=== PATIENT | female | born 1985 | race Hispanic/Latino ===

== ENCOUNTER 2017-07-28 23:57 | Outpatient (CLI) | payer MEDICAID ==
[2017-07-29 01:35] VITALS: BP 120/56
== END 2017-07-29 01:20 | disposition home or self-care (01) ==
LOC: TRG 23:57 → LD 07-29 00:03 → TRG 07-29 01:20
PROVIDERS: ATTEND Obstetrics & Gynecology
DX: O47.1 False labor at or after 37 completed weeks of gestation (principal); Z3A.38 38 weeks gestation of pregnancy

== ENCOUNTER 2019-06-13 14:52 | Inpatient (IN) | payer MEDICAID ==
--- NOTE | 2019-06-13 18:00 | Ultrasound Report ---
ULTRASOUND OBSTETRIC LIMITED ULTRASOUND BIOPHYSICAL PROFILE INDICATION / CLINICAL INFORMATION: well being post dates. COMPARISON: None available. FINDINGS: BREATHING MOVEMENT = 2 GROSS BODY MOVEMENT = 2 TONE = 2 QUALITATIVE AMNIOTIC FLUID VOLUME = 2 TOTAL BIOPHYSICAL SCORE = 8/8 AMNIOTIC FLUID INDEX (cm) = 16 PRESENTATION: cephalic HEART RATE (beats per minute): 125 ADDITIONAL FINDINGS: None. IMPRESSION: 1. Biophysical Score = 8/8 Signer Name: Brandt Alatorre MD Signed: 06/13/2019 5:56 PM Workstation Name: [id number]
--- NOTE | 2019-06-13 18:07 | Ultrasound Report ---
ULTRASOUND LIMITED INDICATION: non reactive nst. COMPARISON: Biophysical profile same day FINDINGS: AMNIOTIC FLUID INDEX (cm) = 16.4 PRESENTATION: Cephalic. HEART RATE (beats per minute): 125 IMPRESSION: 1. Single living intrauterine fetus in cephalic presentation. Normal [place]YSON Signer Name: Brandt Alatorre MD Signed: 06/13/2019 6:03 PM Workstation Name: [email or web address]
[2019-06-13] MEDS ORDERED: LIDOCAINE (2%) 20 MG/1 ML VIAL 20 ML MDV INFILTRATI ONE (18:51)
[2019-06-13] MEDS ORDERED: AMPICILLIN/NS 2 GM/100 ML 2 GM/100 ML BAG IV ONE (18:51)
[2019-06-13] MEDS ORDERED: TERBUTALINE 1 MG/1 ML INJ SUB-Q PRN (18:51)
[2019-06-13] MEDS ORDERED: ePHEDrine SULFATE 50 MG/1 ML INJ IV PRN (18:51)
[2019-06-13] MEDS ORDERED: OXYTOCIN 20 UNIT/1000ML DRIP 20 UNITS/1,000 ML BAG IV SCH (19:00)
--- NOTE | 2019-06-13 19:02 | History and Physical Report ---
History of Present Illness Date of examination: 06/13/19 Date of admission: 06/13/19 Chief complaint: Contractions History of present illness: 34 year old sent from office at 40 3/7 weeks due to nonreactive NST. Patient reports active movement. She denies leaking of water or vaginal bleeding. She reports contractions. Patient received care from [facility] and records are available. LMP 09/03/18. EDC 06/10/19. significant for the following: AMA, anemia (supplemented with iron), elevated 1 hour sugar test (3 hour OGTT WNL), GBS positive, reactive hypoglycemia. labs are as follows: O+, antibody screen negative, rubella immune, hepatitis B surface antigen negative, HIV negative, RPR nonreactive, GC negative, CT negative, GBS positive, panorama low risk, horizon negative, 1 hour sugar test 140, 3 hour OGTT negative. Past History Past Medical History: no pertinent history Past Surgical History: other (eye surgery) [facility] History: chlamydia (history of chlamydia, treated and cured). denies: abnormal PAP smear, gonorrhea, hepatitis B, hepatitis C, herpes, HIV, syphilis, trichomonas Family/Genetic History: cancer (lung cancer (maternal GM)) Social history: lives with family, full code. denies: smoking, alcohol abuse, prescription drug abuse, IV drug use - Obstetrical History Expected Date of Delivery: 06/10/19 Actual Gestation: 40 Week(s) 3 Day(s) : 5 Para: 3 Hx # Term Pregnancies: 3 Number of Pregnancies: 0 Spontaneous Abortions: 0 Induced : 1 Number of Living Children: 3 Medications and Allergies Allergies Allergy/AdvReac Type Severity Reaction Status Date / Time No Known Allergies Allergy Verified 08/06/17 21:45 Active Meds: Active Medications Ephedrine Sulfate (Ephedrine Sulfate) 10 mg IV Q2M PRN PRN Reason: Hypotension Fentanyl (Sublimaze) 100 mcg IV Q2H PRN PRN Reason: Labor Pain Oxytocin/Sodium Chloride (Pitocin/Ns 20 Unit/1000ml Drip) 20 units in 1,000 mls @ 125 mls/hr IV DIRECT TANIA Lactated Ringer's (Lactated Ringers) 1,000 mls @ 125 mls/hr IV DIRECT TANIA Ampicillin Sodium (Ampicillin/Ns 2 Gm/100 Ml) 2 gm in 100 mls @ 100 mls/hr IV ONCE ONE; Protocol Stop: 06/13/19 19:50 Ampicillin Sodium (Ampicillin/Ns 1 Gm/50 Ml) 1 gm in 50 mls @ 100 mls/hr IV Q4HR TANIA; Protocol Lidocaine (Xylocaine 2%) 20 ml INFILTRATI ONCE ONE Stop: 06/13/19 18:52 Terbutaline Sulfate (Brethine) 0.25 mg SUB-Q ONCE PRN PRN Reason: Hyperstimulation/Hypertonicity Review of Systems All systems: negative (contractions) - Vital Signs Vital signs: Vital Signs Pulse Pulse Ox 92 H 98 06/13/19 15:23 06/13/19 15:23 Temp Pulse Resp BP Pulse Ox 98.3 F 92 H 20 104/56 97 06/13/19 15:35 06/13/19 16:13 06/13/19 15:35 06/13/19 15:36 06/13/19 16:13 - Physical Exam Abdomen: Positive: normal appearance, soft, normal bowel sounds. Negative: distention, tenderness, guarding, rigidity Genitourinary (Female): Positive: normal external genitalia, normal perenium. Negative: perineal/vulvar lesions Vagina: Positive: normal moisture Uterus: Positive: enlarged. Negative: tender Anus/Rectum: Positive: normal perianal skin Extremities: Positive: normal. Negative: tenderness, edema - Obstetrical FHR: category 1 FHR comments: Now category 1 FHR tracing. Had one late deceleration earlier in monitoring. No repetitive late decelerations. Uterine Contraction Monitor Mode: External Cervical Dilatation: 2 Cervical Effacement Percentage: 30 station: -4 Uterine Contraction Pattern: Irregular Uterine Contraction Intensity: Mild Results All other labs normal. Assessment and Plan A: at 40 weeks, 3 days gestation. Late deceleration. GBS positive. P: Admit. Continuous EFM. US for EFW. GBS prophylaxis. Pitocin augmentation of labor. Discussed with patient risks and benefits of Pitocin augmentation of labor. Patient consented to Pitocin augmentation of labor.
[2019-06-13] MEDS ORDERED: OXYTOCIN DRIP 30,000 MILLIUNITS/500 ML BAG IV ONE (21:08)
--- NOTE | 2019-06-13 21:20 | Ultrasound Report ---
Limited OB Ultrasound HISTORY: EFW. TECHNIQUE: Grayscale and color Doppler imaging performed. COMPARISON: None FINDINGS: There is a single intrauterine gestation which is cephalic in presentation. Heart rate is 1 50 bpm. The overall EGA is 39 weeks and 5 days by evaluating biparietal diameter, head circumference, abdominal circumference, and femoral length. IMPRESSION: Single viable intrauterine gestation as above on this limited exam. Signer Name: Nicho Carreon MD Signed: 06/13/2019 9:15 PM Workstation Name: [id number]
[2019-06-13] MEDS: LACTATED RINGERS 1,000 ML IV SCH (21:30)
[2019-06-13] MEDS: OXYTOCIN DRIP 30 UNITS/500 ML BAG IV SCH (22:40)
[2019-06-13 22:58] LABS: Hemoglobin 6.7 gm/dl (10.1-14.3); Mean Corpuscular HGB Conc 35 % (30-34); Mean Corpuscular Volume 86 fl (79-97); Platelet Count 103 K/mm3 (140-440); Red Blood Count 2.22 M/mm3 (3.65-5.03)
[2019-06-13 23:04] LABS: Hematocrit 19.1 % (30.3-42.9)
[2019-06-13] MEDS ORDERED: SODIUM CHLORIDE 0.9% 500 ML 500 ML IV ONE ×2 (23:37→23:41)
[2019-06-14 01:21] LABS: Alanine Aminotransferase 6 units/L (7-56); Albumin 1.6 g/dL (3.9-5); BUN/Creatinine Ratio 25; Blood Urea Nitrogen 5 mg/dL (7-17); Hemolysis Index 3
[2019-06-14] MEDS: LACTATED RINGERS 1,000 ML IV SCH (01:21)
[2019-06-14] MEDS: AMPICILLIN/NS 1 GM/50 ML 1 GM/50 ML BAG IV SCH ×3 (01:24→12:35)
[2019-06-14 01:30] LABS: Calcium 4.7 mg/dL (8.4-10.2)
[2019-06-14 01:50] LABS: Uric Acid 2.1 mg/dL (3.5-7.6)
[2019-06-14 02:48] LABS: Hematocrit 32.8 % (30.3-42.9); Hemoglobin 11.2 gm/dl (10.1-14.3); Mean Corpuscular HGB Conc 34 % (30-34); Mean Corpuscular Volume 88 fl (79-97); Platelet Count 173 K/mm3 (140-440); Red Blood Count 3.75 M/mm3 (3.65-5.03); Red Cell Distribution Width 13.9 % (13.2-15.2)
[2019-06-14 03:09] LABS: Alanine Aminotransferase 13 units/L (7-56); BUN/Creatinine Ratio 16; Blood Urea Nitrogen 8 mg/dL (7-17); Calcium 8.4 mg/dL (8.4-10.2); Hemolysis Index 11
[2019-06-14] MEDS: fentaNYL 100 MCG/2 ML INJ IV PRN ×2 (06:20→12:35)
--- NOTE | 2019-06-14 09:29 | Event Note ---
SVE /-3. Patient is starting to feel contractions.
[2019-06-14] MEDS ORDERED: ONDANSETRON 4 MG/2 ML INJ IV ONE (12:39)
[2019-06-14] MEDS ORDERED: ONDANSETRON 4 MG/2 ML INJ ONE (12:40)
--- NOTE | 2019-06-14 15:14 | Progress Note ---
Assessment and Plan A: at 40 weeks, 4 days gestation. GBS positive. Pitocin augmentation of labor. P: Continuous EFM. Continue Pitocin augmentation of labor. Subjective - Subjective Date of service: 06/14/19 Principal diagnosis: at 40 4/7 weeks gestation Interval history: Patient is receiving Pitocin augmentation of labor. Cervix is 3.5/70/-3. Contractions are becoming more regular. Pitocin at 6 milliunits per minute. No LOF or VB. Patient reports: movement normal, contractions, no loss of fluid, no vaginal bleeding Objective - Vital Signs Vital Signs: Vital Signs - 12hr 06/14/19 06/14/19 06/14/19 03:10 03:15 03:20 Temperature Pulse Rate 81 84 81 Respiratory Rate Blood Pressure O2 Sat by Pulse 93 94 95 Oximetry 06/14/19 06/14/19 06/14/19 03:23 03:25 03:27 Temperature Pulse Rate 80 86 79 Respiratory Rate Blood Pressure 97/55 O2 Sat by Pulse 94 96 Oximetry 06/14/19 06/14/19 06/14/19 03:30 03:35 03:40 Temperature Pulse Rate 86 81 82 Respiratory Rate Blood Pressure O2 Sat by Pulse 94 94 96 Oximetry 06/14/19 06/14/19 06/14/19 03:45 03:50 03:53 Temperature Pulse Rate 82 80 73 Respiratory Rate Blood Pressure O2 Sat by Pulse 96 95 94 Oximetry 06/14/19 06/14/19 06/14/19 03:55 04:00 04:02 Temperature Pulse Rate 75 74 74 Respiratory Rate Blood Pressure O2 Sat by Pulse 94 95 93 Oximetry 06/14/19 06/14/19 06/14/19 04:05 04:09 04:10 Temperature Pulse Rate 72 79 72 Respiratory Rate Blood Pressure O2 Sat by Pulse 95 94 95 Oximetry 06/14/19 06/14/19 06/14/19 04:14 04:15 04:20 Temperature Pulse Rate 73 75 72 Respiratory Rate Blood Pressure O2 Sat by Pulse 94 95 96 Oximetry 06/14/19 06/14/19 06/14/19 04:25 04:26 04:30 Temperature Pulse Rate 73 68 75 Respiratory Rate Blood Pressure 98/48 O2 Sat by Pulse 95 95 Oximetry 06/14/19 06/14/19 06/14/19 04:35 04:36 04:40 Temperature Pulse Rate 75 74 77 Respiratory Rate Blood Pressure O2 Sat by Pulse 95 94 94 Oximetry 06/14/19 06/14/19 06/14/19 04:45 04:50 04:55 Temperature Pulse Rate 79 74 76 Respiratory Rate Blood Pressure O2 Sat by Pulse 94 96 96 Oximetry 06/14/19 06/14/19 06/14/19 05:00 05:03 05:05 Temperature Pulse Rate 77 73 85 Respiratory Rate Blood Pressure O2 Sat by Pulse 96 94 96 Oximetry 06/14/19 06/14/19 06/14/19 05:10 05:15 05:20 Temperature Pulse Rate 75 84 78 Respiratory Rate Blood Pressure O2 Sat by Pulse 96 97 95 Oximetry 06/14/19 06/14/19 06/14/19 05:21 05:25 05:26 Temperature Pulse Rate 83 75 73 Respiratory Rate Blood Pressure 92/50 O2 Sat by Pulse 94 95 Oximetry 06/14/19 06/14/19 06/14/19 05:29 05:30 05:35 Temperature Pulse Rate 77 82 77 Respiratory Rate Blood Pressure O2 Sat by Pulse 94 96 96 Oximetry 06/14/19 06/14/19 06/14/19 05:40 05:45 05:50 Temperature 98.4 F Pulse Rate 82 80 76 Respiratory 14 Rate Blood Pressure O2 Sat by Pulse 96 95 96 Oximetry 06/14/19 06/14/19 06/14/19 05:51 05:55 06:20 Temperature Pulse Rate 82 79 Respiratory 14 Rate Blood Pressure O2 Sat by Pulse 94 95 Oximetry 06/14/19 06/14/19 06/14/19 06:21 06:26 06:31 Temperature Pulse Rate 74 71 74 Respiratory Rate Blood Pressure 113/58 111/58 O2 Sat by Pulse 95 95 95 Oximetry 06/14/19 06/14/19 06/14/19 06:36 06:41 06:46 Temperature Pulse Rate 77 74 73 Respiratory Rate Blood Pressure O2 Sat by Pulse 95 97 97 Oximetry 06/14/19 06/14/19 06/14/19 06:51 06:56 07:01 Temperature Pulse Rate 76 76 77 Respiratory Rate Blood Pressure O2 Sat by Pulse 96 96 96 Oximetry 06/14/19 06/14/19 06/14/19 07:06 07:11 07:16 Temperature Pulse Rate 78 78 75 Respiratory Rate Blood Pressure O2 Sat by Pulse 96 97 91 Oximetry 06/14/19 06/14/19 06/14/19 07:21 07:26 07:27 Temperature Pulse Rate 77 84 82 Respiratory Rate Blood Pressure 97/50 O2 Sat by Pulse 91 97 93 Oximetry 06/14/19 06/14/19 06/14/19 07:31 07:36 07:41 Temperature Pulse Rate 78 76 76 Respiratory Rate Blood Pressure O2 Sat by Pulse 91 90 90 Oximetry 06/14/19 06/14/19 06/14/19 07:46 07:51 07:56 Temperature Pulse Rate 77 79 83 Respiratory Rate Blood Pressure O2 Sat by Pulse 90 90 87 Oximetry 06/14/19 06/14/19 06/14/19 08:01 08:06 08:11 Temperature Pulse Rate 74 74 72 Respiratory Rate Blood Pressure O2 Sat by Pulse 90 92 91 Oximetry 06/14/19 06/14/19 06/14/19 08:15 08:25 08:26 Temperature Pulse Rate 72 77 77 Respiratory Rate Blood Pressure 101/50 O2 Sat by Pulse 93 95 93 Oximetry 06/14/19 06/14/19 06/14/19 08:30 08:35 08:40 Temperature Pulse Rate 72 72 73 Respiratory Rate Blood Pressure O2 Sat by Pulse 92 92 93 Oximetry 06/14/19 06/14/19 06/14/19 08:45 08:50 08:55 Temperature Pulse Rate 73 73 75 Respiratory Rate Blood Pressure O2 Sat by Pulse 93 92 92 Oximetry 06/14/19 06/14/19 06/14/19 09:00 09:05 09:09 Temperature Pulse Rate 74 75 80 Respiratory Rate Blood Pressure O2 Sat by Pulse 93 93 94 Oximetry 06/14/19 06/14/19 06/14/19 09:10 09:15 09:20 Temperature Pulse Rate 73 73 75 Respiratory Rate Blood Pressure O2 Sat by Pulse 94 93 93 Oximetry 06/14/19 06/14/19 06/14/19 09:24 09:25 09:26 Temperature Pulse Rate 73 75 73 Respiratory Rate Blood Pressure 90/51 O2 Sat by Pulse 94 93 Oximetry 06/14/19 06/14/19 06/14/19 09:30 09:35 09:40 Temperature Pulse Rate 74 74 79 Respiratory Rate Blood Pressure O2 Sat by Pulse 93 92 93 Oximetry 06/14/19 06/14/19 06/14/19 09:44 09:45 09:49 Temperature Pulse Rate 81 76 Respiratory Rate Blood Pressure O2 Sat by Pulse 87 95 94 Oximetry 06/14/19 06/14/19 06/14/19 09:50 09:55 09:56 Temperature Pulse Rate 76 75 77 Respiratory Rate Blood Pressure O2 Sat by Pulse 94 95 93 Oximetry 06/14/19 06/14/19 06/14/19 10:00 10:05 10:09 Temperature Pulse Rate 82 85 83 Respiratory Rate Blood Pressure O2 Sat by Pulse 91 92 94 Oximetry 06/14/19 06/14/19 06/14/19 10:10 10:15 10:20 Temperature Pulse Rate 75 63 70 Respiratory Rate Blood Pressure O2 Sat by Pulse 93 94 94 Oximetry 06/14/19 06/14/19 06/14/19 10:21 10:25 10:26 Temperature Pulse Rate 75 76 80 Respiratory Rate Blood Pressure 107/54 O2 Sat by Pulse 94 93 Oximetry 06/14/19 06/14/19 06/14/19 10:27 10:30 10:35 Temperature Pulse Rate 74 70 69 Respiratory Rate Blood Pressure O2 Sat by Pulse 94 95 94 Oximetry 06/14/19 06/14/19 06/14/19 10:40 10:45 10:50 Temperature Pulse Rate 71 72 73 Respiratory Rate Blood Pressure O2 Sat by Pulse 95 94 96 Oximetry 06/14/19 06/14/19 06/14/19 10:53 10:55 11:16 Temperature Pulse Rate 77 75 71 Respiratory Rate Blood Pressure O2 Sat by Pulse 93 95 96 Oximetry 06/14/19 06/14/19 06/14/19 11:17 11:21 11:24 Temperature Pulse Rate 76 70 81 Respiratory Rate Blood Pressure O2 Sat by Pulse 94 95 94 Oximetry 06/14/19 06/14/19 06/14/19 11:26 11:31 11:32 Temperature Pulse Rate 72 67 70 Respiratory Rate Blood Pressure 106/55 O2 Sat by Pulse 96 95 94 Oximetry 06/14/19 06/14/19 06/14/19 11:36 11:38 11:41 Temperature Pulse Rate 74 72 74 Respiratory Rate Blood Pressure O2 Sat by Pulse 94 94 94 Oximetry 06/14/19 06/14/19 06/14/19 11:46 11:51 11:52 Temperature Pulse Rate 74 75 73 Respiratory Rate Blood Pressure O2 Sat by Pulse 95 95 94 Oximetry 06/14/19 06/14/19 06/14/19 11:55 11:56 11:59 Temperature Pulse Rate 74 75 74 Respiratory Rate Blood Pressure 99/55 O2 Sat by Pulse 95 94 Oximetry 06/14/19 06/14/19 06/14/19 12:02 12:04 12:08 Temperature Pulse Rate 75 74 71 Respiratory Rate Blood Pressure O2 Sat by Pulse 97 94 96 Oximetry 06/14/19 06/14/19 06/14/19 12:13 12:19 12:24 Temperature Pulse Rate 85 77 75 Respiratory Rate Blood Pressure O2 Sat by Pulse 96 96 96 Oximetry 06/14/19 06/14/19 06/14/19 12:26 12:29 12:32 Temperature Pulse Rate 74 69 74 Respiratory Rate Blood Pressure 102/56 O2 Sat by Pulse 95 94 Oximetry 06/14/19 06/14/19 06/14/19 12:34 12:38 12:39 Temperature Pulse Rate 72 82 79 Respiratory Rate Blood Pressure O2 Sat by Pulse 95 94 94 Oximetry 06/14/19 06/14/19 06/14/19 12:45 12:46 12:47 Temperature 97.7 F Pulse Rate 76 75 Respiratory Rate Blood Pressure O2 Sat by Pulse 95 94 Oximetry 06/14/19 06/14/19 06/14/19 12:51 12:56 13:00 Temperature Pulse Rate 72 70 77 Respiratory Rate Blood Pressure O2 Sat by Pulse 93 93 0 L Oximetry 06/14/19 06/14/19 06/14/19 13:02 13:06 13:07 Temperature Pulse Rate 76 75 75 Respiratory Rate Blood Pressure O2 Sat by Pulse 94 94 92 Oximetry 06/14/19 06/14/19 06/14/19 13:12 13:17 13:22 Temperature Pulse Rate 72 73 74 Respiratory Rate Blood Pressure O2 Sat by Pulse 94 94 94 Oximetry 06/14/19 06/14/19 06/14/19 13:24 13:26 13:27 Temperature Pulse Rate 74 68 74 Respiratory Rate Blood Pressure 99/56 O2 Sat by Pulse 94 94 Oximetry 06/14/19 06/14/19 06/14/19 13:32 13:35 13:37 Temperature Pulse Rate 74 69 74 Respiratory Rate Blood Pressure O2 Sat by Pulse 95 94 95 Oximetry 06/14/19 06/14/19 06/14/19 13:42 13:43 13:47 Temperature Pulse Rate 73 75 71 Respiratory Rate Blood Pressure O2 Sat by Pulse 95 94 94 Oximetry 06/14/19 06/14/19 06/14/19 13:48 13:52 13:54 Temperature Pulse Rate 72 74 69 Respiratory Rate Blood Pressure O2 Sat by Pulse 93 94 94 Oximetry 06/14/19 06/14/19 06/14/19 13:57 14:02 14:07 Temperature Pulse Rate 73 77 75 Respiratory Rate Blood Pressure O2 Sat by Pulse 94 95 94 Oximetry 06/14/19 06/14/19 06/14/19 14:12 14:17 14:28 Temperature Pulse Rate 77 77 76 Respiratory Rate Blood Pressure 108/57 O2 Sat by Pulse 95 94 Oximetry - Exam Abdomen: Present: normal appearance, soft. Absent: distention, tenderness, rigidity Uterus: Present: normal, fundal height above umbilicus. Absent: tenderness FHR: category 1 Uterine Contraction Monitor Mode: External Cervical Dilatation: 3.5 Cervical Effacement Percentage: 70 station: -3 Uterine Contraction Pattern: Regular Uterine Contraction Intensity: Moderate - Labs Labs: Abnormal Labs 06/13/19 06/13/19 06/13/19 21:30 21:30 21:30 RBC 2.22 L Hgb 6.7 L Hct 19.1 L* MCHC 35 H Plt Count 103 L Sodium 158 H Potassium 2.6 L* Chloride 121.3 H Carbon Dioxide 10 L BUN 5 L Creatinine < 0.2 L Glucose 39 L* Uric Acid 2.1 L Calcium 4.7 L* ALT 6 L Alkaline Phosphatase Lactate Dehydrogenase 85 L Total Protein 4.1 L Albumin 1.6 L Crossmatch See Detail 06/14/19 01:59 RBC Hgb Hct MCHC Plt Count Sodium Potassium Chloride Carbon Dioxide 20 L D BUN Creatinine 0.5 L D Glucose Uric Acid Calcium ALT Alkaline Phosphatase 176 H Lactate Dehydrogenase Total Protein 5.8 L D Albumin 3.0 L Crossmatch Laboratory Results - last 24 hr 06/13/19 06/13/19 06/13/19 21:30 21:30 21:30 WBC 4.6 RBC 2.22 L Hgb 6.7 L Hct 19.1 L* MCV 86 MCH 30 MCHC 35 H RDW 14.0 Plt Count 103 L Sodium 158 H Potassium 2.6 L* Chloride 121.3 H Carbon Dioxide 10 L Anion Gap 29 BUN 5 L Creatinine < 0.2 L Estimated GFR > 60 BUN/Creatinine Ratio 25 Glucose 39 L* Uric Acid 2.1 L Calcium 4.7 L* Total Bilirubin 0.20 AST 11 ALT 6 L Alkaline Phosphatase 90 Lactate Dehydrogenase 85 L Total Protein 4.1 L Albumin 1.6 L Albumin/Globulin Ratio 0.6 Blood Type O POSITIVE Antibody Screen Negative Crossmatch See Detail 06/14/19 06/14/19 01:59 01:59 WBC 8.0 RBC 3.75 Hgb 11.2 D Hct 32.8 D MCV 88 MCH 30 MCHC 34 RDW 13.9 Plt Count 173 Sodium 137 D Potassium 3.7 D Chloride 106.3 Carbon Dioxide 20 L D Anion Gap 14 BUN 8 Creatinine 0.5 L D Estimated GFR > 60 BUN/Creatinine Ratio 16 Glucose 80 Uric Acid Calcium 8.4 D Total Bilirubin 0.50 AST 23 ALT 13 Alkaline Phosphatase 176 H Lactate Dehydrogenase Total Protein 5.8 L D Albumin 3.0 L Albumin/Globulin Ratio 1.1 Blood Type Antibody Screen Crossmatch
[2019-06-15] MEDS: OXYTOCIN DRIP 30 UNITS/500 ML BAG IV SCH (00:02)
[2019-06-15] MEDS ORDERED: OXYTOCIN DRIP 30 UNITS/500 ML BAG IV SCH (08:00)
--- NOTE | 2019-06-15 08:44 | Progress Note ---
Assessment and Plan A: at 40 5/7 weeks. GBS positive. P: Pitocin augmentation. GBS prophylaxis. Continuous EFM. Maternal position change. Subjective - Subjective Date of service: 06/15/19 Principal diagnosis: at 40 5/7 weeks gestation Interval history: SVE /-3 to -4. Patient denies VB or LOF. Category 1 heart rate tracing. Patient reports irregular mild contractions. Patient reports: movement normal, contractions, no loss of fluid, no vaginal bleeding Objective - Vital Signs Vital Signs: Vital Signs - 12hr 06/14/19 06/14/19 06/14/19 21:24 21:25 21:29 Temperature Pulse Rate 90 87 91 H Respiratory Rate Blood Pressure 113/58 Blood Pressure [Right] O2 Sat by Pulse 98 98 Oximetry 06/14/19 06/14/19 06/14/19 21:34 21:39 21:44 Temperature Pulse Rate 87 85 92 H Respiratory Rate Blood Pressure Blood Pressure [Right] O2 Sat by Pulse 98 98 98 Oximetry 06/14/19 06/14/19 06/14/19 21:49 21:54 21:59 Temperature Pulse Rate 90 84 90 Respiratory Rate Blood Pressure Blood Pressure [Right] O2 Sat by Pulse 97 98 97 Oximetry 06/14/19 06/14/19 06/14/19 22:04 22:09 22:14 Temperature Pulse Rate 83 82 81 Respiratory Rate Blood Pressure Blood Pressure [Right] O2 Sat by Pulse 98 98 96 Oximetry 06/14/19 06/14/19 06/14/19 22:19 22:22 22:24 Temperature Pulse Rate 90 84 84 Respiratory Rate Blood Pressure Blood Pressure [Right] O2 Sat by Pulse 96 94 94 Oximetry 06/14/19 06/14/19 06/14/19 22:29 22:30 22:34 Temperature Pulse Rate 85 87 86 Respiratory Rate Blood Pressure Blood Pressure [Right] O2 Sat by Pulse 94 94 96 Oximetry 06/14/19 06/14/19 06/14/19 22:36 22:39 22:44 Temperature Pulse Rate 89 85 92 H Respiratory Rate Blood Pressure Blood Pressure [Right] O2 Sat by Pulse 94 95 96 Oximetry 06/14/19 06/14/19 06/14/19 22:47 22:49 22:54 Temperature Pulse Rate 94 H 87 84 Respiratory Rate Blood Pressure Blood Pressure [Right] O2 Sat by Pulse 93 96 95 Oximetry 06/14/19 06/14/19 06/14/19 22:59 23:04 23:07 Temperature Pulse Rate 88 84 72 Respiratory Rate Blood Pressure Blood Pressure [Right] O2 Sat by Pulse 95 96 94 Oximetry 06/14/19 06/14/19 06/14/19 23:09 23:14 23:19 Temperature Pulse Rate 79 85 79 Respiratory Rate Blood Pressure Blood Pressure [Right] O2 Sat by Pulse 95 97 96 Oximetry 06/14/19 06/14/19 06/14/19 23:24 23:25 23:40 Temperature Pulse Rate 75 79 92 H Respiratory Rate Blood Pressure Blood Pressure [Right] O2 Sat by Pulse 95 94 96 Oximetry 06/14/19 06/14/19 06/14/19 23:46 23:47 23:51 Temperature Pulse Rate 92 H 80 85 Respiratory Rate Blood Pressure Blood Pressure [Right] O2 Sat by Pulse 96 94 95 Oximetry 06/14/19 06/15/19 06/15/19 23:56 00:01 00:06 Temperature Pulse Rate 79 80 93 H Respiratory Rate Blood Pressure Blood Pressure [Right] O2 Sat by Pulse 95 97 96 Oximetry 06/15/19 06/15/19 06/15/19 00:11 00:16 00:21 Temperature Pulse Rate 77 82 81 Respiratory Rate Blood Pressure Blood Pressure [Right] O2 Sat by Pulse 96 95 96 Oximetry 06/15/19 06/15/19 06/15/19 00:26 00:31 00:36 Temperature Pulse Rate 80 84 83 Respiratory Rate Blood Pressure Blood Pressure [Right] O2 Sat by Pulse 97 96 97 Oximetry 06/15/19 06/15/19 06/15/19 00:41 00:46 00:51 Temperature Pulse Rate 84 80 80 Respiratory Rate Blood Pressure Blood Pressure [Right] O2 Sat by Pulse 96 96 95 Oximetry 06/15/19 06/15/19 06/15/19 00:56 01:01 01:06 Temperature Pulse Rate 83 84 86 Respiratory Rate Blood Pressure Blood Pressure [Right] O2 Sat by Pulse 96 96 95 Oximetry 06/15/19 06/15/19 06/15/19 01:11 01:16 01:21 Temperature Pulse Rate 89 85 82 Respiratory Rate Blood Pressure Blood Pressure [Right] O2 Sat by Pulse 95 96 96 Oximetry 06/15/19 06/15/19 06/15/19 01:26 01:27 01:36 Temperature Pulse Rate 83 82 86 Respiratory Rate Blood Pressure Blood Pressure [Right] O2 Sat by Pulse 96 94 95 Oximetry 06/15/19 06/15/19 06/15/19 01:42 01:43 01:47 Temperature Pulse Rate 80 74 77 Respiratory Rate Blood Pressure Blood Pressure [Right] O2 Sat by Pulse 95 94 93 Oximetry 06/15/19 06/15/19 06/15/19 01:48 01:52 01:57 Temperature Pulse Rate 80 76 77 Respiratory Rate Blood Pressure Blood Pressure [Right] O2 Sat by Pulse 94 94 96 Oximetry 06/15/19 06/15/19 06/15/19 02:01 02:02 02:07 Temperature Pulse Rate 78 79 74 Respiratory Rate Blood Pressure Blood Pressure [Right] O2 Sat by Pulse 94 95 96 Oximetry 06/15/19 06/15/19 06/15/19 02:08 02:12 02:15 Temperature Pulse Rate 72 74 78 Respiratory Rate Blood Pressure Blood Pressure [Right] O2 Sat by Pulse 94 95 94 Oximetry 06/15/19 06/15/19 06/15/19 02:17 02:20 02:22 Temperature Pulse Rate 75 77 73 Respiratory Rate Blood Pressure Blood Pressure [Right] O2 Sat by Pulse 94 93 94 Oximetry 06/15/19 06/15/19 06/15/19 02:25 02:27 02:32 Temperature Pulse Rate 78 82 75 Respiratory Rate Blood Pressure Blood Pressure [Right] O2 Sat by Pulse 94 95 94 Oximetry 06/15/19 06/15/19 06/15/19 02:37 02:42 02:47 Temperature Pulse Rate 80 80 74 Respiratory Rate Blood Pressure Blood Pressure [Right] O2 Sat by Pulse 93 93 93 Oximetry 06/15/19 06/15/19 06/15/19 02:52 02:57 03:01 Temperature Pulse Rate 79 74 65 Respiratory Rate Blood Pressure Blood Pressure [Right] O2 Sat by Pulse 94 94 94 Oximetry 06/15/19 06/15/19 06/15/19 03:07 03:12 03:14 Temperature Pulse Rate 77 73 71 Respiratory Rate Blood Pressure Blood Pressure [Right] O2 Sat by Pulse 94 94 94 Oximetry 06/15/19 06/15/19 06/15/19 03:17 03:22 03:24 Temperature Pulse Rate 72 73 73 Respiratory Rate Blood Pressure Blood Pressure [Right] O2 Sat by Pulse 94 94 94 Oximetry 06/15/19 06/15/19 06/15/19 03:27 03:32 03:34 Temperature Pulse Rate 75 73 75 Respiratory Rate Blood Pressure Blood Pressure [Right] O2 Sat by Pulse 93 92 93 Oximetry 06/15/19 06/15/19 06/15/19 03:37 03:40 03:42 Temperature Pulse Rate 81 62 80 Respiratory Rate Blood Pressure Blood Pressure [Right] O2 Sat by Pulse 95 94 93 Oximetry 06/15/19 06/15/19 06/15/19 03:47 03:48 03:52 Temperature Pulse Rate 74 69 75 Respiratory Rate Blood Pressure Blood Pressure [Right] O2 Sat by Pulse 94 94 94 Oximetry 06/15/19 06/15/19 06/15/19 03:55 03:57 04:02 Temperature Pulse Rate 76 72 Respiratory Rate Blood Pressure Blood Pressure [Right] O2 Sat by Pulse 94 94 94 Oximetry 06/15/19 06/15/19 06/15/19 04:04 04:07 04:12 Temperature Pulse Rate 71 70 80 Respiratory Rate Blood Pressure Blood Pressure [Right] O2 Sat by Pulse 94 93 94 Oximetry 06/15/19 06/15/19 06/15/19 04:16 04:17 04:22 Temperature Pulse Rate 67 74 75 Respiratory Rate Blood Pressure Blood Pressure [Right] O2 Sat by Pulse 94 94 94 Oximetry 06/15/19 06/15/19 06/15/19 04:24 04:27 04:32 Temperature Pulse Rate 68 74 75 Respiratory Rate Blood Pressure Blood Pressure [Right] O2 Sat by Pulse 94 94 94 Oximetry 06/15/19 06/15/19 06/15/19 04:37 04:42 04:43 Temperature Pulse Rate 73 78 74 Respiratory Rate Blood Pressure Blood Pressure [Right] O2 Sat by Pulse 94 94 94 Oximetry 06/15/19 06/15/19 06/15/19 04:47 04:51 04:52 Temperature Pulse Rate 78 81 72 Respiratory Rate Blood Pressure Blood Pressure [Right] O2 Sat by Pulse 94 94 95 Oximetry 06/15/19 06/15/19 06/15/19 04:57 05:00 05:02 Temperature Pulse Rate 75 74 67 Respiratory Rate Blood Pressure Blood Pressure [Right] O2 Sat by Pulse 95 94 95 Oximetry 06/15/19 06/15/19 06/15/19 05:06 05:07 05:12 Temperature Pulse Rate 72 72 81 Respiratory Rate Blood Pressure Blood Pressure [Right] O2 Sat by Pulse 94 95 96 Oximetry 06/15/19 06/15/19 06/15/19 05:17 05:22 05:27 Temperature Pulse Rate 81 82 79 Respiratory Rate Blood Pressure Blood Pressure [Right] O2 Sat by Pulse 95 96 96 Oximetry 06/15/19 06/15/19 06/15/19 05:32 05:37 05:42 Temperature Pulse Rate 76 72 80 Respiratory Rate Blood Pressure Blood Pressure [Right] O2 Sat by Pulse 96 95 95 Oximetry 06/15/19 06/15/19 06/15/19 05:47 05:52 05:57 Temperature Pulse Rate 77 82 83 Respiratory Rate Blood Pressure Blood Pressure [Right] O2 Sat by Pulse 95 95 94 Oximetry 06/15/19 06/15/19 06/15/19 06:02 06:07 06:24 Temperature Pulse Rate 78 71 84 Respiratory Rate Blood Pressure Blood Pressure [Right] O2 Sat by Pulse 95 95 97 Oximetry 06/15/19 06/15/19 06/15/19 06:29 06:34 06:39 Temperature Pulse Rate 85 78 83 Respiratory Rate Blood Pressure Blood Pressure [Right] O2 Sat by Pulse 95 95 96 Oximetry 06/15/19 06/15/19 06/15/19 06:44 06:45 07:14 Temperature Pulse Rate 82 80 74 Respiratory Rate Blood Pressure Blood Pressure [Right] O2 Sat by Pulse 95 94 97 Oximetry 06/15/19 06/15/19 06/15/19 07:19 07:24 07:25 Temperature 97.7 F Pulse Rate 74 82 80 Respiratory 18 Rate Blood Pressure 110/57 Blood Pressure 110/57 [Right] O2 Sat by Pulse 96 94 94 Oximetry 06/15/19 06/15/19 06/15/19 07:29 07:31 07:34 Temperature Pulse Rate 83 88 78 Respiratory Rate Blood Pressure Blood Pressure [Right] O2 Sat by Pulse 93 0 L 95 Oximetry 06/15/19 06/15/19 06/15/19 07:37 07:39 07:44 Temperature Pulse Rate 85 89 89 Respiratory Rate Blood Pressure Blood Pressure [Right] O2 Sat by Pulse 94 84 84 Oximetry 06/15/19 06/15/19 06/15/19 07:49 07:54 07:59 Temperature Pulse Rate 89 88 90 Respiratory Rate Blood Pressure Blood Pressure [Right] O2 Sat by Pulse 84 84 84 Oximetry 06/15/19 06/15/19 06/15/19 08:04 08:09 08:14 Temperature Pulse Rate 89 87 88 Respiratory Rate Blood Pressure Blood Pressure [Right] O2 Sat by Pulse 84 84 84 Oximetry 06/15/19 06/15/19 06/15/19 08:19 08:24 08:29 Temperature Pulse Rate 88 87 87 Respiratory Rate Blood Pressure Blood Pressure [Right] O2 Sat by Pulse 84 85 84 Oximetry - Exam Narrative Exam: EFW 2744 grams by US upon admission. Abdomen: Present: normal appearance, soft. Absent: distention, tenderness, guarding, rigidity Uterus: Present: normal, fundal height above umbilicus. Absent: tenderness FHR: category 1 Uterine Contraction Monitor Mode: External Cervical Dilatation: 4 Cervical Effacement Percentage: 70 station: -3 to -4 Uterine Contraction Frequency (min): Irregular Uterine Contraction Intensity: Mild - Labs Labs: Abnormal Labs 06/13/19 06/13/19 06/13/19 21:30 21:30 21:30 RBC 2.22 L Hgb 6.7 L Hct 19.1 L* MCHC 35 H Plt Count 103 L Sodium 158 H Potassium 2.6 L* Chloride 121.3 H Carbon Dioxide 10 L BUN 5 L Creatinine < 0.2 L Glucose 39 L* Uric Acid 2.1 L Calcium 4.7 L* ALT 6 L Alkaline Phosphatase Lactate Dehydrogenase 85 L Total Protein 4.1 L Albumin 1.6 L Crossmatch See Detail 06/14/19 01:59 RBC Hgb Hct MCHC Plt Count Sodium Potassium Chloride Carbon Dioxide 20 L D BUN Creatinine 0.5 L D Glucose Uric Acid Calcium ALT Alkaline Phosphatase 176 H Lactate Dehydrogenase Total Protein 5.8 L D Albumin 3.0 L Crossmatch
[2019-06-15] MEDS ORDERED: AMPICILLIN/NS 2 GM/100 ML 0 GM/0 ML BAG IV ONE (10:31)
[2019-06-15] MEDS: fentaNYL 100 MCG/2 ML INJ IV PRN (14:15)
[2019-06-15] MEDS: LACTATED RINGERS 1,000 ML IV SCH ×3 (14:38→19:06)
[2019-06-15] MEDS ORDERED: DEXMEDETOMIDINE 200 MCG/2 ML VIAL IV ONE ×2 (16:56)
[2019-06-15] MEDS ORDERED: NALOXONE 2 MG/2 ML INJ IV PRN (17:06)
[2019-06-15] MEDS ORDERED: ePHEDrine SULFATE 50 MG/1 ML INJ IV PRN (17:06)
--- NOTE | 2019-06-15 17:08 | Anesthesia Consultation ---
Anesthesia Consult and Med Hx Date of service: 06/15/19 - Airway Anesthetic Teeth Evaluation: Good ROM Head & Neck: Adequate Mental/Hyoid Distance: Adequate Mallampati Class: Class II Intubation Access Assessment: Probably Good - Pulmonary Exam CTA: Yes - Cardiac Exam Cardiac Exam: RRR - Pre-Operative Health Status ASA Pre-Surgery Classification: ASA2 Proposed Anesthetic Plan: Epidural - Pre-Anesthesia Comment Pre-Anesthesia Comments: PSH: DENIES - Pulmonary Hx Smoking: No Hx Asthma: No Hx Respiratory Symptoms: No SOB: No COPD: No Home Oxygen Therapy: No Hx Pneumonia: No Hx Sleep Apnea: No - Cardiovascular System Hx Hypertension: No Hx Coronary Artery Disease: No Hx Heart Attack/AMI: No Hx Angina: No Hx Percutaneous Transluminal Coronary Angioplasty (PTCA): No Hx Cardia Arrhythmia: No Hx Pacemaker: No Hx Internal Defibrillator: No Hx Valvular Heart Disease: No Hx Heart Murmur: No Hx Peripheral Vascular Disease: No - Central Nervous System Hx Neuromuscular Disorder: No Hx Seizures: No CVA: No Hx Back Pain: No Hx Psychiatric Problems: Yes - Gastrointestinal Hx Ulcer: No Hx Gastroesophageal Reflux Disease: Yes - Endocrine Hx Renal Disease: No Hx End Stage Renal Disease: No Hx Cirrhosis: No Hx Liver Disease: No Hx Insulin Dependent Diabetes: No Hx Non-Insulin Dependent Diabetes: No Hx Thyroid Disease: No Hx Hypothyroidism: No Hx Hyperthyroidism: No - Hematic Hx Anemia: No Hx Sickle Cell Disease: No - Other Systems Hx Alcohol Use: No Hx Substance Use: No Hx Cancer: No Hx Obesity: Yes
[2019-06-15] MEDS ORDERED: fentaNYL-BUPIV 2 MCG/ML-0.125% 200 MCG/100 ML BAG EPIDURAL SCH (18:00)
--- NOTE | 2019-06-15 19:01 | Event Note ---
Date: 06/15/19 SVE 8/95/-1. Pt. declines AROM at this time. Patient is comfortable since receiving epidural. T 98.2. Vital signs stable. Category 1 heart rate tracing.
[2019-06-15] MEDS: AMPICILLIN/NS 1 GM/50 ML 1 GM/50 ML BAG IV SCH (19:21)
--- NOTE | 2019-06-15 20:40 | Event Note ---
Date: 06/15/19 Patient feels pressure. Cervix 9.5/100/-1. Category 1 heart rate tracing. Patient remains afebrile and vital signs stable. Consulted with Dr. Ashley re: slow progress in labor and patient's cervical exam. Patient resting in right lateral position. Contractions every 3 minutes and uterus palpates soft between contractions.
[2019-06-15] MEDS ORDERED: LIDOCAINE MPF (2%) 20 MG/1 ML VIAL 5 ML ONE (21:49)
[2019-06-15] MEDS ORDERED: BICITRA ORAL LIQD 30ML ONE (23:28)
[2019-06-15] MEDS ORDERED: METOCLOPRAMIDE 10 MG/2 ML INJ ONE (23:28)
[2019-06-15] MEDS ORDERED: FAMOTIDINE 20 MG/2 ML INJ IV ONE ×2 (23:28→23:39)
--- NOTE | 2019-06-15 23:38 | Event Note ---
Date: 06/15/19 Cervix became complete at 10:30 PM and patient pushed for an hour. Little descent of the head. Vtx at [address] Ashley re: lack of descent with good maternal pushing effort. Dr. Ashley states he will perform a section. Patient and S.O. informed of Dr. Ashley's recommendation and patient states she will proceed with section as recommended. Orders put in, team notified.
[2019-06-15] MEDS ORDERED: METOCLOPRAMIDE 10 MG/2 ML INJ IV ONE (23:39)
[2019-06-15] MEDS ORDERED: BICITRA ORAL LIQD 30ML PO ONE (23:39)
[2019-06-15] MEDS ORDERED: ceFAZolin/Water 2 GM/20 ML 2 GM/20 ML SYRINGE IV NR (23:45)
[2019-06-15] MEDS ORDERED: OXYTOCIN 20 UNIT/1000ML DRIP 20 UNITS/1,000 ML BAG IV SCH (23:45)
[2019-06-15] MEDS ORDERED: LACTATED RINGERS 1,000 ML IV SCH (23:45)
[2019-06-16] MEDS ORDERED: LIDOCAINE MPF (2%) 20 MG/1 ML VIAL 5 ML ONE ×3 (00:01→01:05)
[2019-06-16] MEDS ORDERED: HYDROmorphone 1 MG/1 ML INJ IV PRN ×2 (00:02)
[2019-06-16] MEDS ORDERED: ONDANSETRON 4 MG/2 ML INJ IV PRN (00:02)
--- NOTE | 2019-06-16 00:02 | Anesthesia Day of Surgery ---
Anesthesia Day of Surgery - Day of Surgery Patient Examined: Yes Patient H&P Reviewed: Yes Patient is NPO: Yes Beta Blockers: No Cardiac Clearance: No Pulmonary Clearance: No Piyush's Test: N/A
[2019-06-16] MEDS ORDERED: DEXMEDETOMIDINE 200 MCG/2 ML VIAL IV ONE (00:11)
[2019-06-16] MEDS ORDERED: PROPOFOL 200 MG/20 ML VIAL IV ONE (00:36)
[2019-06-16] MEDS ORDERED: KETAMINE/STERILE WATER 50 MG/ML SYRINGE ONE (00:36)
[2019-06-16] MEDS ORDERED: SUCCINYLCHOLINE CHLORIDE 200 MG/10 ML INJ MDV ONE (00:37)
[2019-06-16] MEDS ORDERED: SODIUM CHLORIDE 0.9% IRR 1,500 ML BOTTLE IR ONE (00:41)
[2019-06-16] MEDS ORDERED: WATER FOR IRRIG STERILE 1,500 ML BOTTLE IR ONE (00:41)
[2019-06-16] MEDS ORDERED: ONDANSETRON 4 MG/2 ML INJ ONE (00:56)
[2019-06-16] MEDS ORDERED: dexAMETHasone 20 MG/5 ML VIAL ONE (00:56)
[2019-06-16] MEDS ORDERED: HYDROmorphone 1 MG/1 ML INJ ONE ×2 (00:58)
--- NOTE | 2019-06-16 01:18 | Operative Report ---
Operative Report Operative Report: Date of procedure: 06/16/2019 Pre-operative diagnosis: 1. Intrauterine at 40 6/7 weeks 2. Failu re to progress 3. Failure to descend Post-operative diagnosis: Same Procedure name(s): Primary low transverse section Surgeon: Vitaly Ashley MD Feed Mixer: None Anesthesia: General anesthesia after failed epidural by Sri Duenas CRNA EBL: 900 mL's Findings: A 4484 gm female Apgars 8 at 1 minute 9 at 5 minutes. 2+ meconium fluid. Normal uterus. Normal tubes and ovaries bilaterally. Procedure: After the patient was prepped and draped in usual sterile fashion, and after General anesthesia was administered, the skin knife was used to make a transverse skin incision. The incision was incised down to layer of the fascia, which was nicked in the midline and extended laterally using the Bovie cautery. The rectus muscles were dissected off the rectus fascia both superiorly and inferiorly. The rectus bellies in the midline, and the peritoneum was entered under direct visualization. The peritoneal incision was extended superiorly and inferiorly. A bladder flap was created and the bladder blade was then placed. The uterus was scored in a curvilinear linear fashion, entered in the midline revealing 2+ meconium amniotic fluid. The 's head was delivered onto the surgical field, and the oropharynx and nasopharynx were bulb suctioned. The rest of the infants body delivered, the cord was doubly clamped and cut, and the was handed to the awaiting respiratory team. Cord blood was then obtained. The placenta was manually removed from the uterus, and the uterus removed from its normal anatomical position. After gentle uterine l avage, the incision was inspected and found to be without extensions. It was then closed in 2 layers using 0 Vicryl suture in a running interlocking fashion, the second layer imbricating the first. After good hemostasis was achieved, copious amounts or irrigation was performed, and the gutters were suctioned free of blood and blood clots. The uterus was then returned to its normal anatomical position, and the peritoneum was re-approximated using 3-0 Vicryl suture in a running interlocking fashion, and then the rectus muscles were re-approximated using 3-0 Vicryl suture in a [id number] configuration. The fascia was then re-approximated using 0 Vicryl suture in running interlocking fashion. The subcutaneous layer was made hemostatic using Bovie cautery, and the skin edges re-approximated using 4-0 Vicryl suture in a sub-cuticular fashion. Patient tolerated the procedure well was transported to recovery in stable condition.
[2019-06-16] MEDS ORDERED: WITCH HAZEL/ GLYCERIN PAD TP PRN (01:22)
[2019-06-16] MEDS ORDERED: SENNOSIDES 8.6 MG TAB PO PRN (01:22)
[2019-06-16] MEDS ORDERED: NALOXONE 0.4 MG/1 ML INJ IV PRN (01:22)
[2019-06-16] MEDS ORDERED: ACETAMINOPHEN 325 MG TAB PO PRN (01:22)
[2019-06-16] MEDS ORDERED: LANOLIN/ZINC/DIMETHICONE (LANSINOH) 7 GM TP PRN (01:22)
[2019-06-16] MEDS ORDERED: SIMETHICONE 80 MG CHEW TAB PO PRN (01:22)
[2019-06-16] MEDS ORDERED: MAGNESIUM HYDROXIDE (MOM) ORAL LIQD UDC PO PRN (01:22)
--- NOTE | 2019-06-16 01:31 | Post Anesthesia Evaluation ---
- Post Anesthesia Evaluation Patient Participated: Yes Airway Patent: Yes Stable Respiratory Function: Yes Nausea/Vomiting: No Temp > 96.8F: Yes Pain Manageable: Yes Adequeate Hydration: Yes Anesthesia Complications: No Block Receding Appropriately: Yes Patient on Ventilator: No
[2019-06-16] MEDS ORDERED: OXYTOCIN 20 UNIT/1000ML DRIP 20 UNITS/1,000 ML BAG IV SCH (02:00)
[2019-06-16] MEDS ORDERED: D5W/LACTATED RINGERS 1,000 ML IV SCH (02:00)
[2019-06-16] MEDS: KETOROLAC 30 MG/1 ML INJ IV PRN ×2 (05:23→16:16)
[2019-06-16 06:28] LABS: Basophils % (Auto) 0.3 % (0.0-1.8); Hematocrit 32.4 % (30.3-42.9); Hemoglobin 10.9 gm/dl (10.1-14.3); Lymphocytes # (Auto) 0.9 K/mm3 (1.2-5.4); Lymphocytes % (Auto) 5.2 % (13.4-35.0); Mean Corpuscular HGB Conc 34 % (30-34); Mean Corpuscular Volume 88 fl (79-97); Monocytes % (Auto) 5.8 % (0.0-7.3); Platelet Count 183 K/mm3 (140-440); Red Blood Count 3.67 M/mm3 (3.65-5.03)
[2019-06-16 07:08] LABS: Hepatitis B Surface Antigen Non-Reactive (Negative); Hepatitis C Virus Antibody Non-Reactive (NonReactive)
[2019-06-16] MEDS: PRENATAL VIT27-FE FUMARATE-FOLIC ACID VIT TAB PO SCH (09:16)
[2019-06-16] MEDS: FERROUS SULFATE 325 MG TAB PO SCH (09:16)
[2019-06-16] MEDS: ceFAZolin/NS 1 GM/50 ML 1 GM/50 ML BAG IV SCH ×2 (09:16→16:19)
[2019-06-16] MEDS: HYDROcodone/ACETAMINOPHEN 5-325 MG TAB PO PRN ×2 (09:17→16:16)
[2019-06-16 13:41] LABS: Hematocrit 31.7 % (30.3-42.9); Hemoglobin 10.6 gm/dl (10.1-14.3)
[2019-06-17] MEDS ORDERED: MEASLES, MUMPS & RUBELLA 12,500 UNIT/0.5 ML VACCINE SUB-Q ONE (01:24)
[2019-06-17] MEDS: IBUPROFEN 800 MG TAB PO PRN ×2 (05:15→14:58)
[2019-06-17] MEDS ORDERED: TETANUS,DIPH,PERTUSS(ACELL) VACCINE 0.5 ML SYRINGE IM ONE (06:00)
[2019-06-17] MEDS: PRENATAL VIT27-FE FUMARATE-FOLIC ACID VIT TAB PO SCH (08:27)
[2019-06-17] MEDS: oxyCODONE /ACETAMINOPHEN 5-325MG TAB PO PRN ×2 (08:27→18:06)
[2019-06-17] MEDS: FERROUS SULFATE 325 MG TAB PO SCH (08:27)
--- NOTE | 2019-06-17 09:57 | Progress Note ---
Assessment and Plan - Patient Problems (1) S/P primary low transverse Current Visit: Yes Status: Acute Plan to address problem: Continue routine PP orders Keep incision clean, dry and intact Anticipate d/c home in 24-48 hrs (2) Anemia Current Visit: No Status: Acute Qualifiers: Anemia type: iron deficiency Plan to address problem: Asymptomatic Continue daily iron supplementation as directed Increase iron rich foods into diet Subjective - Subjective Date of service: 06/17/19 Principal diagnosis: at 40 5/7 weeks gestation Interval history: See admission H&P; OB operative summary and PP progress notes Patient reports: appetite normal, voiding normally, pain well controlled (with medications), flatus, ambulating normally, no bowel movement : doing well, bottle feeding Objective - Vital Signs Latest vital signs: Vital Signs Temp Pulse Resp BP BP Pulse Ox 06/17/19 07:47 97.8 F 92 H 18 120/81 06/17/19 00:50 97.9 F 93 H 18 111/73 95 06/16/19 21:09 97.5 F L 85 18 114/52 96 06/16/19 16:59 98.4 F 79 18 116/66 06/16/19 12:23 98.6 F 78 18 107/58 Intake and Output 06/16/19 06/17/19 06/17/19 23:59 07:59 15:59 Intake Total 720 840 Output Total 1300 Balance -580 840 Intake: Oral 480 480 Intake, Free Water 240 360 Output: Urine 1300 Indwelling Catheter 200 Void 1100 Other: Total, Intake Amount 480 480 Total, Output Amount 600 # Voids Void 2 2 - Exam Breasts: Present: normal Cardiovascular: Present: Regular rate Lungs: Present: Normal air movement Abdomen: Present: soft, tenderness Uterus: Present: firm, fundal height below umbilicus (U-1) Extremities: Present: normal Deep Tendon Reflex Grade: Normal +2 Incision: Present: dry, intact (steri-strips intact with no signs of infection noted)
[2019-06-18] MEDS: IBUPROFEN 800 MG TAB PO PRN ×2 (00:26→05:38)
[2019-06-18] MEDS: FERROUS SULFATE 325 MG TAB PO SCH (09:28)
[2019-06-18] MEDS: PRENATAL VIT27-FE FUMARATE-FOLIC ACID VIT TAB PO SCH (09:28)
--- NOTE | 2019-06-18 10:55 | Progress Note ---
Assessment and Plan A: POD #2 Stable P: Follow Routine PostOp Orders D/C Home today per patient request Depo Provera 150mg IM x 1 dose prior to discharge RTO in One week Subjective - Subjective Date of service: 06/18/19 Principal diagnosis: at 40 5/7 weeks gestation Patient reports: appetite normal, voiding normally, pain well controlled, flatus, ambulating normally : doing well, bottle feeding Objective - Vital Signs Latest vital signs: Vital Signs Temp Pulse Resp BP BP Pulse Ox 06/18/19 08:41 97.9 F 58 L 18 111/71 97 06/18/19 01:33 97.8 F 80 20 101/56 94 06/17/19 16:34 98.0 F 77 18 112/68 Intake and Output 06/17/19 06/18/19 06/18/19 22:59 06:59 14:59 Intake Total 480 360 240 Balance 480 360 240 Intake: Oral 480 240 Intake, Free Water 360 Other: Total, Intake Amount 480 240 # Voids Void 2 1 - Exam Breasts: Present: normal Cardiovascular: Present: Regular rate Lungs: Present: Clear to auscultation, Normal air movement Abdomen: Present: normal appearance, soft, normal bowel sounds Uterus: Present: normal, firm, fundal height at umbilicus Extremities: Present: normal Incision: Present: normal, dry, intact
--- NOTE | 2019-06-18 10:57 | Discharge Summary ---
Providers - Providers Date of Admission: 06/13/19 18:51 Date of discharge: 06/18/19 Attending physician: NASIR MART Primary care physician: NASIR MART Hospitalization Reason for admission: induction of labor Delivery: Procedure: primary low transverse Episiotomy: none Laceration: none Incision: normal, dry, intact Other procedures: none complications: none Discharge diagnosis: IUP at term delivered baby: female Condition at discharge: Good Disposition: DC-01 TO HOME OR SELFCARE Plan - Provider Discharge Summary Activity: routine, no sex for 6 weeks, no heavy lifting 4 weeks, no strenuous exercise Diet: routine Instructions: routine Additional instructions: [] Smoking cessation referral if applicable(refer to patient education folder for contact #) [] Refer to [facility] Booklet Call your doctor immediately for: * Fever > 100.5 * Heavy vaginal bleeding ( >1 pad per hour) * Severe persistent headache * Shortness of breath * Reddened, hot, painful area to leg or breast * Drainage or odor from incision. * Keep incision clean and dry at all times and follow doctor's instructions regarding bathing/showering - Follow up plan Follow up: NASIR MART MD [Primary Care Provider] - 7 Days
[2019-06-18] MEDS ORDERED: medroxyPROGESTERone ACETATE 150 MG/ML SYRINGE IM NR (11:00)
[2019-06-18] MEDS: oxyCODONE /ACETAMINOPHEN 5-325MG TAB PO PRN (12:56)
[2019-06-18 18:36] VITALS: BP 124/77
== END 2019-06-18 20:25 | disposition home or self-care (01) | DRG 766 ==
LOC: TRG 14:52 → LD 18:51 → OB 06-16 04:30
PROVIDERS: ADMIT Obstetrics & Gynecology; ATTEND Obstetrics & Gynecology
PROC: 10D00Z1 Extraction of Products of Conception, Low, Open Approach (ICD-10-PCS; principal; 2019-06-16)
PROC: 3E0234Z Introduction of Serum, Toxoid and Vaccine into Muscle, Percutaneous Approach (ICD-10-PCS; 2019-06-17)
PROC: 3E0134Z Introduction of Serum, Toxoid and Vaccine into Subcutaneous Tissue, Percutaneous Approach (ICD-10-PCS; 2019-06-17)
DX: O99.824 Streptococcus B carrier state complicating childbirth (principal); O77.0 Labor and delivery complicated by meconium in amniotic fluid; O99.214 Obesity complicating childbirth; O99.62 Diseases of the digestive system complicating childbirth; K21.9 Gastro-esophageal reflux disease without esophagitis; O99.03 Anemia complicating the puerperium; D50.9 Iron deficiency anemia, unspecified; O76 Abnormality in fetal heart rate and rhythm complicating labor and delivery; O62.1 Secondary uterine inertia; Z23 Encounter for immunization; Z37.0 Single live birth; Z3A.40 40 weeks gestation of pregnancy; Z80.1 Family history of malignant neoplasm of trachea, bronchus and lung
CPT/HCPCS: 36415; 76815; 76816; 76819; 80053; 80074; 83615; 84550; 85014; 85018; 85025; 85027; 86850; 86900; 86901; 86920; G0378; J0290; J0330; J0690; J1050; J1100; J1170; J1885; J2405; J2590; J2704; J2765; J3010; J3490; J7120